=== PATIENT | female | born 1950 | race Caucasian/White ===

== ENCOUNTER → 2017-06-01 | Outpatient (CLI) | payer MEDICARE, OTHER ==
--- NOTE | 2017-06-02 16:11 | BD ---
EXAMINATION TYPE: MG DEXA axial skeleton. DATE OF EXAM: 06/01/2017 COMPARISON: NONE CLINICAL HISTORY: Height: 5 ft 6IN Weight: 226 FRAX RISK QUESTIONS: Alcohol (3 or more units per day): NO Family History (Parent hip fracture): NO Glucocorticoids (More than 3mos): NO (Ex: prednisone, prednisolone, methylprednisolone, dexamethasone, and hydrocortisone). History of Fracture in Adulthood: NO Secondary Osteoporosis: 1. Type 1 Diabetes: NO 2. Hyperthyroidism: NO 3. Menopause before 45: PART HYST AGE 28 4. Malnutrition: NO 5. Chronic liver disease: NO Rheumatoid Arthritis: NO Current Tobacco Use: NO RISK FACTORS HISTORY OF: Active: YES Postmenopausal woman: PART HSYT AGE 28 MEDICATIONS: Additional Medications: ATENOLOL,BABY ASPIRIN,YAJAIRA, OMEPRAZOLE,CHOLESTEROL Additional History: EXAM MEASUREMENTS: Bone mineral densitometry was performed using the [employer] System. Bone mineral density as measured about the Lumbar spine is: ----- L1-L4(G/cm2): 1.115 T Score Values are as follows: ----- L2: -0.9 ----- L3: -0.3 ----- L4: 0.6 ----- L1-L4: -0.5 BASELINE Bone mineral density about the R hip (g/cm2): 0.881 Bone mineral density about the L hip (g/cm2): 0.933 T Score values are as follows: -----R Neck: -1.1 -----L Neck: -0.8 -----R Total: 0.1 -----L Total: 0.2 BASELINE IMPRESSION: 1. Osteopenia (T Score between -2.5 and -1) as noted by T score values with regards to the right hip. There is slightly increased risk of fracture and the patient may be considered for treatment. Re-Screen 2-5 years. 2. Normal (Values between +1 and -1 indicate normal bone mass) with regards to the left hip. Consider repeating this study in 5 years or sooner if there is some new clinical indication. NOTE: T-SCORE=SD OF THE YOUNG ADULT MEAN.
--- NOTE | 2017-06-03 08:28 | MM ---
Reason for exam: screening (asymptomatic). Last mammogram was performed 2 years and 5 months ago. History: Patient is postmenopausal. Took estrogen for 5 years. Took progesterone for 5 years. Physical Findings: A clinical breast exam by your physician is recommended on an annual basis and results should be correlated with mammographic findings. MG 3D Screening Mammo W/Cad Bilateral CC and MLO view(s) were taken. Prior study comparison: September 07, 2013, bilateral digital screening mammo w/CAD. July 25, 2012, bilateral digital screening mammo w/CAD. The breast tissue is heterogeneously dense. This may lower the sensitivity of mammography. No suspicious abnormality. No significant changes when compared with prior studies. ASSESSMENT: Negative, BI-RAD 1 RECOMMENDATION: Routine screening mammogram of both breasts in 1 year.
== END | disposition home or self-care (01) ==
LOC: RADMAMWWP 15:23
PROVIDERS: ATTEND Internal Medicine
DX: Z12.31 Encounter for screening mammogram for malignant neoplasm of breast (principal); M85.851 Other specified disorders of bone density and structure, right thigh; Z78.0 Asymptomatic menopausal state
CPT/HCPCS: 77080; 77063; G0202

== ENCOUNTER → 2018-04-20 | Day surgery (SDC) | payer MEDICARE ==
[2018-04-18 11:25] VITALS: BMI 32.8
[~2018-04-20] MED LIST: LACTATED RINGERS 1,000 ML IV SCH; LIDOCAINE 1% 20 ML VIAL (10MG/ML) FOR IV START INTRADERMA PRN; PROPOFOL 10 MG/ML 20 ML VIAL IV ONE
[2018-04-20 08:01] VITALS: TEMP 97.2
[2018-04-20 09:47] VITALS: BP 159/75; PULSE 58; RESP 18
--- NOTE | 2018-04-20 09:47 | P.PCN ---
Date of Procedure: 04/20/18 Procedure(s) Performed: BRIEF HISTORY: Patient is a 67-year-old pleasant white female, scheduled for an elective colonoscopy as a part of screening for colorectal neoplasia. PROCEDURE PERFORMED: Colonoscopy with snare polypectomy, hot biopsy, argon plasma coagulation. PREOPERATIVE DIAGNOSIS: Screening for colon cancer. IV sedation per Anesthesia. PROCEDURE: After informed consent was obtained, the patient, was brought into the endoscopy unit. IV sedation was administered by Anesthesia under continuous monitoring. Digital rectal examination was normal. Initially the Olympus CF- 160 flexible video colonoscope was then inserted in the rectum, gradually advanced into the cecum without any difficulty. Careful examination was performed as the scope was gradually being withdrawn. Ileocecal valve and the appendiceal orifice were visualized and appeared normal. Prep was excellent. Mucosa of the cecum, appeared normal. In the ascending colon there was a 3 cm flat polyp noted. Initially part of the polyp was removed by piecemeal snare polypectomy. Subsequently was not able to remove the polyp completely. Hence hot biopsy was performed and following this argon plasma coagulation was was done for the duration of the polyp. In the transverse colon there was a 5 mm polyp that was removed by snare polypectomy. The rest of the ascending colon, transverse colon, descending colon, sigmoid colon, and rectum appeared normal. Retroflexion was performed in the rectum and no lesions were seen. The patient tolerated the procedure well. IMPRESSION: 3 cm flat ascending colon polyp status post partial piecemeal snare polypectomy , hot biopsy, argon plasma coag coagulation as described above 5 mm proximal transverse colon polyp status post snare polypectomy RECOMMENDATIONS: Findings of this examination were discussed with the patient as well as a family. She was advised to follow with the biopsy results. She' ll be seen in office in 2 weeks. We'll plan a repeat colonoscopy in 3-6 months biopsy results to ensure complete polypectomy..
== END | disposition home or self-care (01) ==
LOC: ORWHC2ENDO 07:24
PROVIDERS: ATTEND Internal Medicine Gastroenterology
DX: Z12.11 Encounter for screening for malignant neoplasm of colon (principal); D12.2 Benign neoplasm of ascending colon; D12.3 Benign neoplasm of transverse colon
CPT/HCPCS: 88305; 45384; 45385; 45388; J2704; 45382

== ENCOUNTER → 2018-11-01 | Outpatient (CLI) | payer MEDICARE ==
[2018-11-01 09:35] VITALS: BP 151/107; PULSE 100; RESP 18; TEMP 98.1; BMI 35.4
--- NOTE | 2018-11-01 10:28 | P.HPOB ---
History of Present Illness H&P Date: 11/01/18 Chief Complaint: The patient is here for her routine gynecologic exam and mammogram. This is a 67-year-old with an LMP of 1974. The patient is without gynecologic complaints. She is status post SOHAIL for abnormal bleeding which was benign. 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 She denies any symptoms from vagina. Review of Systems Weight has been stable since her last examined 2014. She denies respiratory, cardiac, or G.I. problems. : she occasionally does not get to the bathroom fast enough and can leak. She denies maltreatment or falling. Past Medical History Past Medical History: Asthma, GERD/Reflux, Hyperlipidemia, Hypertension Additional Past Medical History / Comment(s): hx. of recto vaginal fistula( repaired), hemorrhoids and fissures. Seasonal allergies. 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 SOHAIL in 1974. Rectovaginal fistula repaired 2006. History of Any Multi-Drug Resistant Organisms: None Reported Past Surgical History: Hysterectomy (SOHAIL 1974.), Tonsillectomy Additional Past Surgical History / Comment(s): bilat cataracts, A & P REPAIR, rectovaginal fistula repair 2006. Colonoscopy 2010 and 2017. 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 - Past Family History Son(s) Family Medical History: Myocardial Infarction (NM) Additional Family Medical History / Comment(s): @35 Mother Additional Family Medical History / Comment(s): Heart disease. Father Family Medical History: Congestive Heart Failure (CHF) Medications and Allergies Home Medications Medication Instructions Recorded Confirmed Type Aspirin 81 mg PO DAILY 02/14/14 11/01/18 History Atenolol [Tenormin] 50 mg PO DAILY 02/14/14 11/01/18 History Fexofenadine HCl 180 mg PO DAILY 02/14/14 11/01/18 History Omeprazole [PriLOSEC] 20 mg PO AC-BRKFST 04/18/18 11/01/18 History Rosuvastatin Calcium [Crestor] 40 mg PO DAILY 04/18/18 11/01/18 History Allergies Allergy/AdvReac Type Severity Reaction Status Date / Time latex Allergy Dyspnea Verified 11/01/18 09:30 Exam Vital Signs Temp Pulse Resp BP Pulse Ox 11/01/18 09:32 98.1 F 100 18 151/107 97 Intake and Output 10/31/18 11/01/18 11/01/18 22:59 06:59 14:59 Other: Weight 102.512 kg Height 5'7", weight 226 pounds, BMI 35.4. This is a well-developed well-nourished heavyset white female who is alert and oriented times 3 in no acute distress. HEENT: Within normal limits. NECK: Supple without mass or thyromegaly. CHEST AND LUNGS: Clear to auscultation. HEART: mild tachycardia with intermittent irregular beats BREASTS: Are without mass or discharge. The right breast has central nipple inversion which the patient states has been this way for many years. AXILLARY EXAM: Negative for adenopathy. BACK: Negative for CVA tenderness. ABDOMEN: Soft, obese, nontender, without palpable masses. PELVIC EXAM: External genitalia appears normal with mild atrophy. Vagina appears normal mild atrophy. There is a grade 2 rectocele. There is no evidence of cystocele. There is no unusual vaginal discharge Bimanual examination is negative for mass or tenderness. RECTAL EXAM: Rectovaginal exam is negative for mass or tenderness and is positive for occult blood. There is no evidence of a rectovaginal fistula. EXTREMITIES: Nontender. IMPRESSION: 1. 67-year-old menopausal female status post SOHAIL for benign reasons. 2. Grade 2 rectocele. Asymptomatic. 3. History of rectovaginal fistula repair with no evidence of recurrence. 4. Irregular heart rhythm on exam today. 5. Heme positive stool on rectal exam today. She is scheduled for a colonoscopy this week with Dr. Ferguson because of multiple colon polyps. 6. Elevated blood pressure with history of chronic hypertension. The patient states she forgot to take her medication today. PLAN: 1. Pap smears have been discontinued. 2. Self breast awareness was discussed with the patient. 3. Screening mammogram will be done today. 4. 12 lead EKG will be done today. She will follow-up with Dr. Quinn for any cardiac issues. 5. She will take her blood pressure medication as prescribed as soon as possible. 6. She states she has a colonoscopy scheduled for [address] Ferguson. She will notify Dr. Ferguson that she had heme positive stool today. 7. I have recommended that she check her own blood pressure on a regular basis and follow-up with Dr. Quinn for blood pressure elevations. 8. She did not receive a flu shot this fall. I recommended that she considered doing this at the beginning of each flu season. 9. She will return in one year for her annual well woman exam.
--- NOTE | 2018-11-02 09:06 | P.PN ---
Progress Note - Text Progress Note Date: 11/02/18 OUTPATIENT FOLLOW-UP NOTE TEST(S)/RESULTS: EKG done on 11/01/2018 shows atrial fibrillation with a ventricular rate of 119 bpm. METHOD OF NOTIFICATION: the patient was notified by phone. PATIENT COMMENTS: the patient states her family has a cable respooler that they have used and she will consider seeing him or one with [facility] for this. Their cable respooler is Dr. Howard. DIAGNOSIS: atrial fibrillation detected at her well woman exam. DISCUSSION: I have spoken with Dr. Boone, the cable respooler, regarding this patient. He will have his office called the patient and should be seen within the next week. The patient was notified that [facility] will be calling. She states she will decide whether she will see Dr. Howard or Dr. Boone. I have recommended that she try to get into see one of these cardiologists as soon as possible. I have also recommended that she speak with Dr. Ferguson, her G.I. doctor. who has her scheduled for a colonoscopy in the near future. The patient should let Dr. Ferguson know that she has atrial fibrillation to see if the colonoscopy should be postponed. PLAN: cardiology evaluation for atrial fibrillation.
--- NOTE | 2018-11-02 11:47 | MM ---
Reason for exam: screening (asymptomatic). Last mammogram was performed 1 year and 5 months ago. History: Patient is postmenopausal. Took estrogen for 5 years. Took progesterone for 5 years. Physical Findings: A clinical breast exam by your physician is recommended on an annual basis and results should be correlated with mammographic findings. MG 3D Screening Mammo W/Cad Bilateral CC and MLO view(s) were taken. Prior study comparison: June 01, 2017, bilateral MG 3d screening mammo w/cad. December 19, 2014, bilateral MG screening mammo w CAD. The breast tissue is heterogeneously dense. This may lower the sensitivity of mammography. There are benign appearing round vascular calcifications bilaterally. There is no discrete abnormality. ASSESSMENT: Benign, BI-RAD 2 RECOMMENDATION: Routine screening mammogram of both breasts in 1 year.
== END ==
LOC: WWCWWP 09:08
PROVIDERS: ATTEND Obstetrics & Gynecology
DX: Z12.31 Encounter for screening mammogram for malignant neoplasm of breast (principal); I49.9 Cardiac arrhythmia, unspecified
CPT/HCPCS: 77063; 77067; 93005

== ENCOUNTER 2019-01-18 07:08 | Day surgery (SDC) | payer MEDICARE ==
[2019-01-16 14:09] VITALS: BMI 32.8
[~2019-01-18 07:08] MED LIST changes: -LIDOCAINE 1% 20 ML VIAL (10MG/ML) FOR IV START INTRADERMA PRN; -PROPOFOL 10 MG/ML 20 ML VIAL IV ONE
[2019-01-18 07:27] VITALS: TEMP 97.8
[2019-01-18] MEDS ORDERED: LACTATED RINGERS 1,000 ML IV ONE (07:27)
[2019-01-18] MEDS ORDERED: LIDOCAINE 1% 20 ML VIAL (10MG/ML) FOR IV START INTRADERMA ONE (07:28)
[2019-01-18] MEDS ORDERED: PROPOFOL 10 MG/ML 20 ML VIAL IV ONE (08:09)
[2019-01-18] MEDS ORDERED: MIDAZOLAM 2 MG/2 ML VIAL ONE (08:09)
[2019-01-18] MEDS ORDERED: fentaNYL (PF) 50 MCG/ML 2 ML AMP ONE (08:09)
--- NOTE | 2019-01-18 08:28 | P.PCN ---
Date of Procedure: 01/18/19 Procedure(s) Performed: BRIEF HISTORY: Patient is a 74-year-old pleasant female, scheduled for an elective colonoscopy as a part of surveillance of prior history of colon polyps. She had a colonoscopy in March 2018 and was noted to have a 3 cm flat ascending colon polyp that was removed in a piecemeal fashion and biopsies revealed tubular adenoma. His and scheduled for repeat surveillance colonoscopy today. PROCEDURE PERFORMED: Colonoscopy with snare polypectomy. PREOPERATIVE DIAGNOSIS: Follow-up large ascending colon polyp. IV sedation per Anesthesia. PROCEDURE: After informed consent was obtained, the patient, was brought into the endoscopy unit. IV sedation was administered by Anesthesia under continuous monitoring. Digital rectal examination was normal. Initially the Olympus CF-160 flexible video colonoscope was then inserted in the rectum, gradually advanced into the cecum without any difficulty. Careful examination was performed as the scope was gradually being withdrawn. Ileocecal valve and the appendiceal orifice were visualized and appeared normal. Prep was excellent. Mucosa of the cecum, appeared normal. In the ascending colon there was a 1 segment of flat residual polyp at the site of previous polypectomy which was removed by snare. Rest of the ascending colon, transverse colon, descending colon, sigmoid colon, and rectum appeared normal. Scattered sigmoid diverticulosis seen. Retroflexion was performed in the rectum and no lesions were seen. The patient tolerated the procedure well. IMPRESSION: 1 cm flat residual ascending colon polyp status post snare polypectomy and complete polypectomy accomplished. Scattered sigmoid diverticulosis RECOMMENDATIONS: Findings of this examination were discussed with the patient as well as her family. She was advised to follow with the biopsy results. She can have a repeat surveillance colonoscopy in 3 years..
[2019-01-18 08:38] VITALS: RESP 16
[2019-01-18 09:02] VITALS: BP 132/76; PULSE 80
== END 2019-01-18 09:18 | disposition home or self-care (01) ==
LOC: ORWHC2ENDO 07:08
PROVIDERS: ATTEND Internal Medicine Gastroenterology
DX: Z09 Encounter for follow-up examination after completed treatment for conditions other than malignant neoplasm (principal); Z86.010 Personal history of colon polyps; D12.2 Benign neoplasm of ascending colon; K57.30 Diverticulosis of large intestine without perforation or abscess without bleeding; Z79.899 Other long term (current) drug therapy; Z91.040 Latex allergy status; I10 Essential (primary) hypertension; E78.5 Hyperlipidemia, unspecified; I48.91 Unspecified atrial fibrillation; Z79.01 Long term (current) use of anticoagulants
CPT/HCPCS: 45385; 88305

== ENCOUNTER → 2020-04-15 | Outpatient (CLI) | payer MEDICARE ==
--- NOTE | 2020-04-15 19:58 | BD ---
EXAMINATION TYPE: Axial Bone Density DATE OF EXAM: 04/15/2020 COMPARISON: NONE CLINICAL HISTORY: Postmenopausal screening Height: 5 FT 5 1/2 IN Weight: 223 FRAX RISK QUESTIONS: Alcohol (3 or more units per day): NO Family History (Parent hip fracture): NO Glucocorticoids (More than 3mos): NO (Ex: prednisone, prednisolone, methylprednisolone, dexamethasone, and hydrocortisone). History of Fracture in Adulthood: NO Secondary Osteoporosis: 1. Type 1 Diabetes: NO 2. Hyperthyroidism: 3. Menopause before 45: UNSURE 4. Malnutrition: NO 5. Chronic liver disease: NO Rheumatoid Arthritis: NO Current Tobacco Use: NO RISK FACTORS HISTORY OF: Family History of Osteoporosis: NO Active: NO Postmenopausal woman: PART HYST IN HER 30'S NEVER HAD SYMPTOMS Lost more than 2 inches in height since high school: YES MEDICATIONS: Additional Medications: ATENOLOL, OMEPRAZOLE, XERALTO, ROVASTATIN, DILTIAZEM,VIT D Additional History: EXAM MEASUREMENTS: Bone mineral densitometry was performed using the [employer] System. Bone mineral density as measured about the Lumbar spine is: ----- L1-L4(G/cm2): 1.130 T Score Values are as follows: ----- L2: -0.3 ----- L3: -0.5 ----- L4: -0.2 ----- L1-L4: -0.4 Bone mineral density has: DECREASED -1.7 % since study of: 2016 Bone mineral density about the R hip (g/cm2): 0.861 Bone mineral density about the L hip (g/cm2): 0.917 T Score values are as follows: -----R Neck: -1.3 -----L Neck: -0.9 -----R Total: -0.1 -----L Total: 0.2 Bone mineral density has: DECREASED -1.7 % since study of: 2016 IMPRESSION: Osteopenia (T Score between -2.5 and -1). There is slightly increased risk of fracture and the patient may be considered for treatment. Re-Screen 2-5 years. NOTE: T-SCORE=SD OF THE YOUNG ADULT MEAN.
--- NOTE | 2020-04-16 13:21 | MM ---
Reason for exam: screening (asymptomatic). Last mammogram was performed 1 year and 5 months ago. History: Patient is postmenopausal. Took estrogen for 5 years. Took progesterone for 5 years. Physical Findings: A clinical breast exam by your physician is recommended on an annual basis and results should be correlated with mammographic findings. MG 3D Screening Mammo W/Cad Bilateral CC and MLO view(s) were taken. XCCL view(s) were taken of the right breast. Prior study comparison: November 01, 2018, bilateral MG 3d screening mammo w/cad. June 01, 2017, bilateral MG 3d screening mammo w/cad. The breast tissue is heterogeneously dense. This may lower the sensitivity of mammography. There are benign appearing round vascular calcifications bilaterally. There is no discrete abnormality. ASSESSMENT: Benign, BI-RAD 2 RECOMMENDATION: Routine screening mammogram of both breasts in 1 year.
== END | disposition home or self-care (01) ==
LOC: RADMAMWWP 09:36
PROVIDERS: ATTEND Internal Medicine
DX: Z12.31 Encounter for screening mammogram for malignant neoplasm of breast (principal); M85.80 Other specified disorders of bone density and structure, unspecified site; Z78.0 Asymptomatic menopausal state
CPT/HCPCS: 77063; 77067; 77080

== ENCOUNTER → 2021-09-17 | Outpatient (CLI) | payer MEDICARE ==
--- NOTE | 2021-09-18 09:38 | MM ---
Reason for exam: screening (asymptomatic). Last mammogram was performed 1 year and 5 months ago. History: Patient is postmenopausal. Took estrogen for 5 years. Took progesterone for 5 years. Physical Findings: A clinical breast exam by your physician is recommended on an annual basis and results should be correlated with mammographic findings. MG 3D Screening Mammo W/Cad Bilateral CC, MLO, and XCCL view(s) were taken. Prior study comparison: April 15, 2020, bilateral MG 3d screening mammo w/cad. November 01, 2018, bilateral MG 3d screening mammo w/cad. The breast tissue is heterogeneously dense. This may lower the sensitivity of mammography. No significant changes when compared with prior studies. ASSESSMENT: Benign, BI-RAD 2 RECOMMENDATION: Routine screening mammogram of both breasts in 1 year.
== END | disposition home or self-care (01) ==
LOC: RADMAMWWP 08:34
PROVIDERS: ATTEND Internal Medicine
DX: Z12.31 Encounter for screening mammogram for malignant neoplasm of breast (principal)
CPT/HCPCS: 77063; 77067

== ENCOUNTER → 2022-12-25 | Outpatient (CLI) | payer MEDICARE ==
[2022-12-25 20:02] LABS: Basophils # (A) 0.03 X 10*3/uL (0.00-0.10); Basophils % (A) 0.5 %; Eosinophils # (A) 0.16 X 10*3/uL (0.04-0.35); Eosinophils % (A) 2.9 %; HCT 33.4 % (37.2-46.3); HGB 9.4 g/dL (12.0-15.0); Immature Grans, Automated 0.2 %; Lymphocytes # (A) 1.29 X 10*3/uL (0.90-5.00); Lymphocytes % (A) 23.3 %; MCH 21.4 pg (27.0-32.0); MCHC 28.1 g/dL (32.0-37.0); MCV 76.1 fL (80.0-97.0); Mean Platelet Volume 11.4 fL (9.5-12.2); Monocytes # (A) 0.86 X 10*3/uL (0.20-1.00); Monocytes % (A) 15.6 %; NRBC Per 100 WBC 0 /100 WBCS (0.0-0.0); Neutrophils # (A) 3.18 X 10*3/uL (1.80-7.70); Neutrophils % (A) 57.5 %; Platelet Count 275 X 10*3/uL (140-440); RBC 4.39 X 10*6/uL (4.10-5.20); RDW 19.3 % (11.5-14.5); WBC 5.53 X 10*3/uL (4.50-10.00)
[2022-12-25 20:06] LABS: African American GFR (CKD) 64.3 (60.0-200.0); Anion Gap 10.4 mmol/L (10.00-18.00); BUN/Creat Ratio 19.6 Ratio (12.00-20.00); Blood Urea Nitrogen 19.6 mg/dL (9.0-27.0); Calcium 9.9 mg/dL (8.7-10.3); Carbon Dioxide 26.6 mmol/L (20.0-27.5); Non-African American GFR(CKD) 55.5 (60.0-200.0); Potassium 4.8 mmol/L (3.5-5.5)
[2022-12-25 21:08] LABS: Appearance,Urine Cloudy (Clear); Bilirubin,Urine Negative (Negative); Blood,Urine Trace (Negative); Color,Urine Yellow (Yellow); Ketones,Urine Negative (Negative); Nitrite,Urine Negative (Negative); PH, Urine 5.5 (5.0-8.0); Specific Gravity,Urine 1.023 (1.001-1.030)
[2022-12-25 22:39] LABS: Bacteria,Urine 2+ /HPF (None Seen); Calcium Oxalate Crystals,Urine Present /LPF (None Seen)
== END | disposition home or self-care (01) ==
LOC: LABPAT 11:38
PROVIDERS: ATTEND Urology
DX: Z01.812 Encounter for preprocedural laboratory examination (principal); D41.02 Neoplasm of uncertain behavior of left kidney; N20.0 Calculus of kidney; R31.0 Gross hematuria; R31.29 Other microscopic hematuria
CPT/HCPCS: 36415; 80048; 81001; 85025; 87086

== ENCOUNTER → 2024-05-16 | Outpatient (CLI) | payer MEDICARE ==
--- NOTE | 2024-05-16 23:19 | BD ---
EXAMINATION TYPE: Axial Bone Density DATE OF EXAM: 05/16/2024 CLINICAL HISTORY: 73 years old Female. ICD-10 CODE: M85.9 DISORDER OF BONE DENSITY AND STRUCTURE Height: 65 Weight: 219 FRAX RISK QUESTIONS: Secondary Osteoporosis: RISK FACTORS HISTORY OF: MEDICATIONS: EXAM MEASUREMENTS: Bone mineral densitometry was performed using the [employer] System. Bone mineral density as measured about the Lumbar spine is: ----- L1-L4(G/cm2): 1.104 T Score Values are as follows: ----- L1: -2.1 ----- L2: -0.3 ----- L3: -0.8 ----- L4: 0.2 ----- L1-L4: -0.6 Z Score Values are as follows: ----- L1: -1.5 ----- L2: 0.3 ----- L3: -0.2 ----- L4: 0.8 ----- L1-L4: 0.0 Bone mineral density has: Decreased -2.3% since study of: 04-15-20 Bone mineral density about the R hip (g/cm2): 0.967 Bone mineral density about the L hip (g/cm2): 1.000 T Score values are as follows: -----R Neck: -1.3 -----L Neck: -1.2 -----R Total: -0.3 -----L Total: -0.1 Z Score values are as follows: -----R Neck: -0.1 -----L Neck: 0.0 -----R Total: 0.6 -----L Total: 0.9 Bone mineral density has: Decreased -2.7% since study of: 04-15-20 FRAX%s: The graph provided illustrates a 9.8% chance for a major osteoporotic fx and a 1.7% chance fo r the hips probability for fx in 10 years time. IMPRESSION: Osteopenia (T Score between -2.5 and -1). There is slightly increased risk of fracture and the patient may be considered for treatment. Re-Screen 2-5 years. NOTE: T-SCORE=SD OF THE YOUNG ADULT MEAN. [facility], , 05/16/2024 11:17 PM
--- NOTE | 2024-05-29 13:40 | MM ---
Reason for Exam: Screening (asymptomatic). Last mammogram was performed 2 year(s) and 8 month(s) ago. Patient History: Menarche at age 11. First Full-Term at age 21. Hysterectomy at age 33. Postmenopausal. Estrogen for 5 years until age 45. Progesterone for 5 years until age 45. Risk Values: Jailyn 5 year model risk: 1.6%. NCI Lifetime model risk: 3.4%. Prior Study Comparison: 11/01/2018 Bilateral Screening Mammogram, [facility]. 04/15/2020 Bilateral Screening Mammogram, [facility]. 09/17/2021 Bilateral Screening Mammogram, [facility]. Tissue Density: The breasts are heterogeneously dense, which may obscure small masses. Analyzed By CAD. Overall Assessment: Benign, BI-RAD 2 Management: Screening Mammogram of both breasts in 1 year. Electronically signed and approved by: Javi Paez DO
== END | disposition home or self-care (01) ==
LOC: RADMAMWWP 10:12
PROVIDERS: ATTEND Internal Medicine
DX: Z12.31 Encounter for screening mammogram for malignant neoplasm of breast (principal); R92.333 Mammographic heterogeneous density, bilateral breasts; M85.89 Other specified disorders of bone density and structure, multiple sites; Z78.0 Asymptomatic menopausal state
CPT/HCPCS: 77063; 77067; 77080